=== PATIENT | male | born 1980 | race Two or more races ===

== ENCOUNTER 2018-11-12 09:18 | Outpatient (CLI) | payer OTHER ==
[2018-11-12 10:04] VITALS: BP 100/60
--- NOTE | 2018-11-12 10:04 | SLEEP CARE CONSULTATION ---
Information from patient questionnaire entered by Tosin Montes. I have reviewed and concur with the information entered by Tosin Montes. This document represents the service I personally performed and the decisions made by me, Leigh Zeng MD, [facility]. History of Present Illness Reason for Visit: New patient Chief Complaint: reports: Unrefreshed sleep, Snoring, Observed pauses in breathing, Fatigue, Frequent awakenings at night Duration of Symptoms: 3 YEARS Usual bedtime: 2200 Time it takes to fall asleep: 20-30 MINUTES Snores at night: Yes Observed to quit breathing while asleep: Yes Sleeps alone due to snoring: No Number of times waking at night: 4 Reasons for waking at night: reports: Choking, Snoring, Gasping for air, Bathroom Toss, Turn, or Twitch while sleeping: Yes Recalls having dreams: No Usually gets out of bed at: 0600 Feels refreshed in the morning: No Morning headache: No Sleepy or fatigued during the day: Yes Ever fallen asleep while driving: Yes Takes day naps: No Dreams during day naps: No Prior sleep studies: No Subjective Initial Hammond Sleepiness Scale score: 14 Past Medical History Past Medical History: reports: Claustrophobia Social History 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 Patient is and lives in [place]. Have you smoked in the past 12 months: No Alcohol use: Yes Alcohol amount and frequency: 2 PER WEEK Caffeine use: No Family History Family history of sleep disordered breathing: Yes Family Hx Sleep Apnea: Father: Sleep apnea - Treated (on CPAP), Sibling: Sleep apnea - Treated Allergies and Home Medications Drug allergies reviewed: Yes Home medication list reviewed: Yes Review of Systems Weight gain over past 5 years: 10 Cardiovascular: denies: high blood pressure, palpitations, chest pain, irregular heart rate or pulse, leg or foot swelling, have to sleep sitting up, other Respiratory: denies: shortness of breath, wheeze, sputum production, chronic cough, other Gastrointestinal: denies: heartburn, difficulty swallowing, nausea, vomitting, diarrhea, abdominal pain, other Urinary: reports: frequency, urgency Neurological: denies: headaches, seizure, head trauma, disorientation, speech dysfunction, gait or balance problems, fainting or unconsciousness, other Psychiatric: reports: claustrophobia Ear/Nose/Throat: reports: tonsillectomy, wisdom teeth removed Endocrine: reports: increased urination. denies: thyroid disease, history of goiter, sluggishness, too hot or cold, excessive thirst, increased appetite, unexplained weakness, other Musculoskeletal: denies: joint pain, neck pain, back pain, joint swelling, muscle pain or cramping, mobility problems, other Immunologic: denies: sneezing, rash, itching, allergies to food or environment, other Physical Exam Vital signs obtained and entered by: Dr. Zeng Blood Pressure: 100/60 Heart Rate: 64 O2 Saturation: 98 Height: 5 ft 11 in Weight (kg): 220 lb Body Mass Index: 30.7 BMI Classification: Class 1 Mood/affect: Normal HEENT: No craniofacial malformation Nostrils: patent to airflow Turbinates: normal Septum: deviated left Mouth and throat: narrow oropharynx Soft palate: long Hard palate: normal Uvula: normal Uvula visualization: 50% Mallampati Class II Tongue: normal in size Tonsils: absent bilaterally Chin and jaw: normal size and position Neck: normal w/o lymphadenopathy or thyromegaly Heart: regular rate and rhythm Lungs: clear bilaterally Abdomen: soft Extremities: no edema or clubbing Neurologic: intact Impression and Plan IMPRESSION: 1. Obstructive Sleep Apnea-Hypopnea Syndrome, as suggested by history of loud and irregular snoring, observed cessation of breath while asleep, frequent awakenings during the night, unrefreshed sleep, nocturnal choking, and daytime hypersomnolence. Narrow oropharynx and obesity are common predisposing factors for obstructive sleep apnea-hypopnea syndrome. Pathophysiology of sleep- disordered breathing was discussed. I recommend proceeding to polysomnography to confirm the diagnosis and to assess severity. If he has significant sleep disordered breathing, a manual CPAP titration study will also be performed to find the optimal treatment pressure. I informed the patient of what the sleep studies involve and after some discussion, he agreed to proceed. Plan: Attempt to lose weight, Avoid alcohol, sedatives, and muscle relaxants around bedtime, Avoid driving until sleepiness completely resolves on therapy, Schedule polysomnography, Schedule manual titration I spent 100% of this 15 minute visit face to face with the patient with greater than 50% of this was spent time counseling the patient and coordination of care.
== END 2018-11-12 09:19 | disposition home or self-care (01) ==
LOC: SC 09:18
PROVIDERS: ATTEND Internal Medicine Pulmonary Disease
DX: R06.83 Snoring (principal); R06.81 Apnea, not elsewhere classified; G47.8 Other sleep disorders; G47.10 Hypersomnia, unspecified
CPT/HCPCS: 99203; 99212

== ENCOUNTER 2018-11-18 19:29 | Outpatient (CLI) | payer OTHER | END 2018-11-18 19:30 | disposition home or self-care (01) | LOC: SC 19:29 | PROVIDERS: ATTEND Internal Medicine Pulmonary Disease | DX: G47.61 Periodic limb movement disorder (principal) | CPT/HCPCS: 95810 ==

== ENCOUNTER 2020-03-31 07:21 | Day surgery (SDC) | payer OTHER ==
[~2020-03-31 07:21] MED LIST: LIDOCAINE-MPF 2% 5 ML VIAL ONE; PROPOFOL 200 MG/20 ML VIAL IVP ONE; ROCURONIUM 50 MG/5 ML VIAL ONE; cefTRIAXone 2 GM VIAL ONE
[2020-03-31] MEDS ORDERED: EPINEPHrine 1 MG/ML AMP ONE (07:34)
[2020-03-31] MEDS ORDERED: BUPIVACAINE 0.25% PF 30 ML VIAL ONE (07:34)
[2020-03-31 07:42] VITALS: BP 117/77
== END 2020-03-31 07:22 | disposition home or self-care (01) ==
LOC: SDS 07:21
PROVIDERS: ATTEND Orthopaedic Surgery
DX: Z53.9 Procedure and treatment not carried out, unspecified reason (principal)

== ENCOUNTER 2020-04-07 09:48 | Day surgery (SDC) | payer OTHER ==
[~2020-04-07 09:48] MED LIST changes: +DEXAMETHASONE 4 MG/ML VIAL ONE; +KETOROLAC 30 MG/ML VIAL ONE; +LIDOCAINE-PF 2% 10 ML AMP SUBQ ONE; +ONDANSETRON 4 MG/2 ML VIAL ONE; +ROPIVACAINE 0.5% PF 20 ML AMPULE ONE; +SODIUM CHLORIDE 0.9% 20 ML ONE
[2020-04-07] MEDS ORDERED: LACTATED RINGERS 1,000 ML IV ONE ×2 (10:12→15:34)
--- NOTE | 2020-04-07 10:28 | ANESTHESIA ---
Pre-Anesthesia VS, & Labs - Diagnosis Left shoulder SLAP and rotator cuff tears - Procedure left shoulder scope, rotator cuff repair, biceps tenodesis Height: 6 ft Weight (kg): 100.9 kg Body Mass Index: 30.2 BMI Classification: Obese - NPO >8 hours Home Medications and Allergies Ibuprofen [Motrin] 600 mg PO Q6H PRN 03/25/20 Allergies/Adverse Reactions: Allergies Allergy/AdvReac Type Severity Reaction Status Date / Time No Known Drug Allergies Allergy Verified 03/25/20 15:33 Anes History & Medical History - Anesthetic History Anesthesia Complications: reports: No previous complications - Medical History Cardiovascular: reports: None Pulmonary: reports: None Gastrointestinal: reports: None Urinary: reports: None Neuro: reports: None Musculoskeletal: reports: None, Other Endocrine/Autoimmune: reports: None Blood Disorders: reports: None Skin: reports: None Smoking Status: Never smoker Psychosocial: reports: No issues indicated History of Cancer?: No - Surgical History General: Other Orthopedic: Rotator cuff repair (right) Exam General: Alert, Oriented x3, Cooperative, No acute distress Dental: WNL Mouth Openin Fingerbreadth Neck Mobility: Normal Mallampati classification: II Thyromental Distance: 4-6 cm Mental/Cognitive Status: Alert/Oriented X3, Normal for patient Plan Anesthesia Type: General, Interscalene Block (Left), Other (Left supracervical block) Regional Block: Per Surgeon's request for Post Op pain control Consent for Procedure(s) Verified and Reviewed: Yes Code Status: Attempt Resuscitation ASA classification: 1-Healthy patient Is this case an emergency?: No
[2020-04-07] MEDS ORDERED: MIDAZOLAM 2 MG/2 ML VIAL ONE (10:34)
[2020-04-07] MEDS ORDERED: fentaNYL 100 MCG/2 ML VIAL ONE (10:34)
[2020-04-07] MEDS ORDERED: ONDANSETRON 4 MG/2 ML VIAL IVP PRN ×2 (10:35→14:48)
[2020-04-07] MEDS ORDERED: METOCLOPRAMIDE 10 MG/2 ML VIAL IVP PRN (10:35)
[2020-04-07] MEDS ORDERED: MORPHINE 2 MG/ML CARPUJECT IVP PRN (10:35)
[2020-04-07] MEDS ORDERED: HYDROmorphone 0.5 MG/0.5 ML SYRINGE IVP PRN (10:35)
[2020-04-07] MEDS ORDERED: fentaNYL 100 MCG/2 ML VIAL IVP PRN (10:35)
[2020-04-07] MEDS ORDERED: ATROPINE ABBOJECT 1 MG/10 ML SYRINGE IVP PRN (10:35)
[2020-04-07] MEDS ORDERED: ePHEDrine 50 MG/ML VIAL IVP PRN (10:35)
[2020-04-07] MEDS ORDERED: NALOXONE 0.4 MG/ML VIAL IVP PRN (10:35)
[2020-04-07] MEDS ORDERED: LACTATED RINGERS 1,000 ML IV SCH (11:00)
[2020-04-07] MEDS ORDERED: EPINEPHrine 1 MG/ML AMP ONE (11:38)
[2020-04-07] MEDS ORDERED: EPINEPHrine 1 MG/ML AMP IR ONE (12:27)
[2020-04-07] MEDS ORDERED: SUGAMMADEX 200 MG/2 ML VIAL IVP ONE (12:54)
[2020-04-07] MEDS ORDERED: ePHEDrine 50 MG/ML VIAL IVP ONE (13:00)
[2020-04-07] MEDS ORDERED: ROPIVACAINE 0.5% PF 20 ML AMPULE ONE (13:56)
[2020-04-07] MEDS ORDERED: LIDOCAINE-MPF 2% 5 ML VIAL ONE (13:56)
[2020-04-07] MEDS ORDERED: PROPOFOL 200 MG/20 ML VIAL IVP ONE (13:56)
[2020-04-07] MEDS ORDERED: BUPIVACAINE 0.25% PF 30 ML VIAL SUBQ ONE (14:42)
[2020-04-07] MEDS ORDERED: oxyCODONE 5 MG TABLET PO PRN (14:48)
[2020-04-07] MEDS ORDERED: BUPIVACAINE 0.25% PF 30 ML VIAL ONE (14:51)
--- NOTE | 2020-04-07 14:54 | OPERATIVE REPORT ---
Operative Report - Other Other Information/Narrative: Date of Surgery: 07 April 2020 Pre-Op Diagnosis: Left shoulder rotator cuff. Left biceps tenodesis Procedure: Left shoulder arthroscopy with debridement. Open rotator cuff repair. Open biceps tenodesis Postop Diagnosis: Same Primary Surgeon: Edvin Gaona Secondary Surgeon: John Brenner Complications: None EBL: 50 cc IMPLANTS: Arthrex corkscrew x2 Arthrex swivel locks x2 Arthrex fiber tack x1 POSTOPERATIVE PLAN: 0-2 weeks-Sling at all times. Pendulum exercises 5 times per day. No active flexion of the elbow. 2-6 weeks-Passive range of motion without limitations. No active range of motion of the cuff. No active flexion of the elbow. 6-12 weeks-Gradually increase active motion focusing on rotator cuff and scapular stabilizers per protocol. Active flexion of the elbow is okay. 12 weeks to 6 monthsgradual strengthening of the cuff and biceps but no dynamic activity. Dynamic activity can start after 6 months EXAMINATION UNDER ANESTHESIA: ROM: Full Anterior load and shift: Stable Posterior load and shift: Stable Inferior sulcus: Stable ARTHROSCOPIC FINDINGS: Rotator interval: Normal Biceps tendon & SLAP: Tendinosis of the biceps tendon was seen at its insertion. The biceps was tenodesed Subscapularis: Normal Rotator Cuff: Full-thickness supraspinatus tear which entered into the anterior fibers of infraspinatus. This tear was expanded to include partial thickness areas, exploited, and repaired HAGL: Normal Labrum: Normal Glenoid Cartilage: Normal Humeral Head Cartilage: Normal INDICATION FOR SURGERY: 40-year-old male with history of a right rotator cuff repair and biceps tenodesis who now presents with left rotator cuff tear, pain, and biceps related pain. He was recommended for surgery over 18 months ago but decided to deploy instead. He now presents ready for surgery. Nonoperative managment failed to resolve symptoms. The risks, benefits, and alternatives were discussed. Risks included pain, bleeding, infection, damage to nearby structures, lack of symptom relief, implant complications, stiffness, need for further surgeries, DVT, PE, stroke, and even . He signed a written consent form. PROCEDURE IN DETAIL: The patient was met in the preoperative holding on the day of the procedure. Operative extremity was signed. Consent was verified. They desired to proceed. Regional anesthesia was obtained in the preoperative area. They were brought to the operating room and surrendered to anesthesia. Once general anesthesia was obtained they were placed in the lateral decubitus position with the operative side up. An axillary roll was placed and all bony prominences were well-padded. A surgical timeout was held to confirm the patient procedure, identity, procedure, laterality, allergies, images, and antibiotics. All were in agreement we proceeded. A standard diagnostic arthroscopy was performed utilizing posterior and anterosuperior portals. The anterosuperior portal was created under direct visualization and localized with a spinal needle. The 7 mm cannula was placed anteriorly. The findings of the diagnostic arthroscopy can be found above. A biter was used to tenotomize the biceps at its insertion on the labrum. The stump was debrided. The rotator cuff tear was visualized and a spinal needle was used to localize that from the lateral location. I then placed the shaver through portal at this location and it peeled the intact fibers of the supraspinatus both posteriorly and anteriorly. I used the shaver and bur mode to prepare the greater tuberosity. A full-thickness, crescent shaped cuff tear was then identified measuring approximately 2 cm in width. The decision was then made to perform the repair open. A 5 cm incision was made in line with the prior portal site. The fascia over the deltoid was then split and the fibers of the deltoid were split. The deep fascia was also split, taking care to not damage the axillary nerve distally. I have bursectomy was then performed. The rotator cuff tear was easily identified. I then prepared the greater tuberosity with a rasp until it was a bed of bleeding bone. Cork screws were placed in the medial row and 8 sutures were passed evenly spread out using the scorpion. The sutures captured all cuff tissue. The sutures were then pulled on and this reduced the cuff nicely. I then tied the medial row down into place. The location of the lateral row was identified and planned out. 1 suture from each not was taken. A small dogear was appreciated anteriorly and so a FiberWire was placed into that area in a vertical mattress fashion. I then placed a lateral row anchors, tensioning each suture prior to placing the swivel lock. The cuff was very nicely reduced and compressed. An arthroscopic picture was taken. The cuff moved nicely as well internal and external rotation. MINI OPEN BICEPS TENODESIS: A 5 cm incision was made near the axillary fold centered over the pectoralis major tendon. Electrocautery was used to obtain hemostasis. The fascia was opened with dissection scissors. Blunt digital dissection was used to identify the intertubercular groove just under the pectoralis major tendon. The long head of the biceps tendon was visualized within this interval. The short head of the biceps was retracted with my finger and the right angle was used to deliver the tendon of the long head of the biceps out of the wound. A cash elevator was then used to debride all synovial tissue from the intertubercular groove. A fibertack was placed high within the groove. Both limbs of the fibertack were pulled on and it was well fixed. I then whipstitched the biceps tendon starting 2 cm proximal to the musculotendinous junction down to the musculotendinous junction and back up to the same 2 cm location with a single limb of the suture tack. The other suture was placed once through the tendon at the 2 cm location. I then cut all excess tendon off. The suture limb that was passed the single time was then pulled on and this reduced the tendon nicely into the groove. The elbow was fully straightened and there was no excess tension on the repair site. I then tied 7 reverse half hitches alternating to secure the tendon in its place. The wound was then irrigated copiously. The portal sites were then closed with 3-0 Monocryl buried. The deltoid fascia was closed with 0 Vicryl. Any open incisions were closed with 2-0 Vicryl in the dermis and a running 3-0 Monocryl in the skin. Mastisol and Steri-Strips were applied. A sterile dressing and a sling was applied. A sling was placed. The patient was awakened and transferred to the recovery room.
--- NOTE | 2020-04-07 15:42 | ANESTHESIA POST OP EVALUATION ---
Anesthesia Post Eval - Post Anesthesia Eval Vitals: Last Vital Signs Temp 36.3 C L 04/07/20 15:36 Pulse 74 04/07/20 15:36 Resp 18 04/07/20 15:36 BP 135/89 H 04/07/20 15:36 Pulse Ox 100 04/07/20 15:36 CV Function Including HR & BP: positive: Stable Pain Control: positive: Satisfactory Nausea & Vomiting: positive: Negative Mental Status: positive: Baseline Respiratory Status: Airway Patent Hydration Status: Satisfactory Anesthesia Complications: positive: None
[2020-04-07 16:04] VITALS: BP 128/82
== END 2020-04-07 09:49 | disposition home or self-care (01) ==
LOC: SDS 09:48
PROVIDERS: ATTEND Orthopaedic Surgery
DX: S46.012A Strain of muscle(s) and tendon(s) of the rotator cuff of left shoulder, initial encounter (principal); S43.432A Superior glenoid labrum lesion of left shoulder, initial encounter; M75.22 Bicipital tendinitis, left shoulder; E66.9 Obesity, unspecified; Z68.30 Body mass index [BMI] 30.0-30.9, adult
CPT/HCPCS: 23410; 23430; 29822; C1713; J7120